=== PATIENT | male | born 1955 | race African-American/Black ===

== ENCOUNTER 2020-06-27 09:34 | Emergency (ER) | payer MEDICARE, OTHER ==
[~2020-06-27] VITALS: Ht 185.4 cm; Wt 62.6 kg
[~2020-06-27 09:34] MED LIST: AMIN30LI33 PO; AMLO-213 PO; ATOR80TA PO; CALC668T PO; CLON0.3T PO; DOCU100C36 PO; DOXE2VIA IV; EPOE4000 IJ; FOLI1TAB16 PO; GLIP5TAB13 PO; HYDR100T27 PO; IRON100V2 IV; LISI20TA31 PO; MEGE40TA5 PO; METO25TA20 PO; ONDA4TAB11 PO; PARO20TA7 PO; SPIR25TA PO; VIT1TABL44 PO; ZINC15TA4 PO; [UNRECOGNIZED DRUG - OTHER] PO; isosorbide PO
--- NOTE | 2020-06-27 09:52 | NUR ---
RONALD AV FISTULA DRESSING, CLEAN AND DRY. NO S/SX OF ACTIVE BLEEDING AT THIS TIME. SHEETS AND CLOTHES NOTED WITH DRY BLOOD.
[2020-06-27 11:13] LABS: BASOPHILS % (AUTO) 0.7 % (0.0-2.0); EOSINOPHILS % (AUTO) 0.2 % (0.0-6.0); HEMATOCRIT 30 % (39-51); HEMOGLOBIN 9.7 g/dL (13.5-17.5); LYMPHOCYTES # (AUTO) 0.6 /CMM (0.8-4.8); LYMPHOCYTES % (AUTO) 11.2 % (20.0-44.0); MEAN CORPUSCULAR HGB CONC 32 g/dl (31.0-36.0); MEAN CORPUSCULAR VOLUME 96 fL (80-96); MONOCYTES # (AUTO) 0.7 /CMM (0.1-1.30); MONOCYTES % (AUTO) 13.9 % (2.0-12.0); NEUTROPHILS # (AUTO) 3.9 /CMM (1.8-8.9); PLATELET COUNT (AUTO) 177 /CMM (150-450); RED BLOOD CELL COUNT(AUTO) 3.13 MIL/uL (4.5-6.0); WHITE BLOOD COUNT (AUTO) 5.3 K/uL (4.3-11.0)
--- NOTE | 2020-06-27 12:14 | NUR ---
PT AMBULATED WITH ASSIST AND TOLERATED WELL. MADE AWARE. PT ALSO PROVIDED WITH LUNCH. PT WAS INFORMED THAT PT IS CLEARED FOR DISCHARGE. SHE IS GOING TO CALL THE PT'S NEPHEW FOR LABEL SEWER.
--- NOTE | 2020-06-27 13:15 | NUR ---
Patient discharged to home in stable condition. Written and verbal after care instructions given. Patient verbalizes understanding of instruction.
[2020-06-27 13:16] VITALS: BP 160/84
== END 2020-06-27 13:16 | disposition home or self-care (01) ==
LOC: ER 09:41
DX: T82.838A Hemorrhage due to vascular prosthetic devices, implants and grafts, initial encounter (principal); I12.0 Hypertensive chronic kidney disease with stage 5 chronic kidney disease or end stage renal disease; E11.22 Type 2 diabetes mellitus with diabetic chronic kidney disease; N18.6 End stage renal disease; D63.1 Anemia in chronic kidney disease; E11.42 Type 2 diabetes mellitus with diabetic polyneuropathy; Z99.2 Dependence on renal dialysis; Z86.73 Personal history of transient ischemic attack (TIA), and cerebral infarction without residual deficits; Z79.899 Other long term (current) drug therapy; Z79.82 Long term (current) use of aspirin
CPT/HCPCS: 36415; 85025-TC